=== PATIENT | female | born 1985 | race Caucasian/White ===

== ENCOUNTER 2019-10-02 11:55 | Inpatient (IN) | payer BC ==
[~2019-10-02] VITALS: Ht 165.1 cm; Wt 128.2 kg
[2019-10-02] VITALS (18 sets, daily range): BP systolic 95–137; BP diastolic 55–91; PULSE 54–90; TEMP 97.5–98.2
[~2019-10-02 11:55] MED LIST: COLACE 100100 MG/CAP PO; MOTRIN 600600 MG/TAB PO; PRENATAL1 TA1 PO; SLOW FE160 MG PO
--- NOTE | 2019-10-02 12:05 | NUR ---
G6L4 at 39.0 weeks gestation to LDR6 with . Patient c/o painful contractions at home. She reports good movement and denies leaking of fluid or vaginal bleeding. Patient changed into gown, wedged left. EFMs explained and applied. SVE /high. Plan of care reviewed.
[2019-10-02] MEDS ORDERED: ZOLOFT 50MG50 MG PO (12:07)
[2019-10-02] MEDS ORDERED: NATURAL IRON65 MG PO (12:08)
[2019-10-02 13:40] LABS: BASO % 0.4 % (0.0-2.0); EOS # 0.1 (0.0-0.7); EOS % 0.6 % (0-4.0); GRAN # 7.2 (1.4-6.5); GRAN % 69.9 % (42.2-75.2); HEMOGLOBIN 10.8 g/dl (12.5-16.0); LYMPH % 19.2 % (20.0-51.0); MEAN CELL VOLUME 79 fl (80.0-100.0); MEAN CORPUSCULAR HEMOGLOBIN 26 pg (27.0-31.0); MEAN CORPUSCULAR HGB CONC 33 g/dl (33.0-37.0); MEAN PLATELET VOLUME 11.4 fl (7.4-10.4); MONO # 0.9 (0.1-0.6); MONO % 8.7 % (1.7-9.3); PLATELET COUNT 192 K/mm3 (130-400); RED BLOOD COUNT 4.17 M/mm3 (4.10-5.30); REDCELL DISTRIBUTION WIDTH-CV 14.3 % (11.5-14.5)
[2019-10-02 13:43] LABS: HEMATOCRIT 32.8 % (37.0-47.0)
[2019-10-03 02:15] VITALS: BP 118/67; PULSE 80; TEMP 98.2
[2019-10-03 07:51] LABS: HEMOGLOBIN 10.7 g/dl (12.5-16.0)
[2019-10-03 08:30] VITALS: BP 134/78; PULSE 87; TEMP 97.5
[2019-10-03] MEDS ORDERED: PERCOCET 325 MG1 TA2 PO (09:24)
[2019-10-03] MEDS ORDERED: IBU600 MG PO (09:24)
--- NOTE | 2019-10-03 12:18 | NUR ---
Initial visit; Patient thanked [facility] [employer] [facility] for offering congratulations and God's blessings for the of her daughter. Orth[facility] Maker thanked patient for choosing [facility].
[2019-10-03 16:24] VITALS: BP 132/77; PULSE 74; TEMP 97.4
[2019-10-03 20:00] VITALS: BP 138/72; PULSE 67; TEMP 97.4
[2019-10-04 07:00] VITALS: BP 120/89; PULSE 85; TEMP 97.8
[2019-10-04 16:30] VITALS: BP 143/86; PULSE 88; TEMP 97.6
[2019-10-04 20:00] VITALS: BP 123/74; PULSE 101; TEMP 98
[2019-10-05 07:15] VITALS: BP 134/81; PULSE 90; TEMP 97.8
--- NOTE | 2019-10-05 15:23 | NUR ---
Patient to boarder status. D/c instructions provided.
== END 2019-10-05 15:30 | disposition home or self-care (01) | DRG 788 ==
LOC: LDRO 11:55 → OB 13:23 → LDRO 13:25 → OB 13:26
PROVIDERS: Obstetrics & Gynecology; ADMIT Student in an Organized Health Care Education/Training Program
PROC: 10D00Z1 Extraction of Products of Conception, Low, Open Approach (ICD-10-PCS; principal; 2019-10-02)
DX: O34.211 Maternal care for low transverse scar from previous cesarean delivery (principal); O77.0 Labor and delivery complicated by meconium in amniotic fluid; Z3A.39 39 weeks gestation of pregnancy; Z37.0 Single live birth; Z23 Encounter for immunization
CPT/HCPCS: J0690; J1885; J2175; J2370; J2405; J2590; J3010; J7120